=== PATIENT | male | born 1940 | race Caucasian/White ===

== ENCOUNTER 2016-04-26 11:55 | Inpatient (IN) ==
--- NOTE | 2016-04-26 12:07 | EKG Report ---
Stationary ECG Study [facility] ER Test Date: 04/26/2016 12:07:01 PM Pat Name: KERLINE GORDON Department: Room: Gender: M Jailor: Jose Mukherjee : 1940 Requested by: Tae Rm Order Number: [id number] Reading MD: PAT PRATER Intervals [place] Rate: 50 P: 61 CO: 192 QRS: 67 QRSD: 115 T: -65 QT: 472 QTc: 446 Interpretive Statements SINUS BRADYCARDIA Electronically Signed On 04-26-16 21:01:35 DIRECTOR OF PARTNER MARKETING by PAT PRATER [email or web address]
[2016-04-26 12:30] LABS: Basophils # 0.1 10*3/uL (0.0-0.2); Basophils % 0.8 % (0.0-0.8); Eosinophils # 0.5 10*3/uL (0.0-0.87); Eosinophils % 7.6 % (0.00-10.9); Hematocrit 35.4 VOL% (42.0-52.0); Hemoglobin 12.3 GM/DL (14.0-18.0); Immature Granulocytes % 0.2 %; Immature Granulocytes Absolute 0.01 #; Lymphocytes # 1.9 10*3/uL (1.4-4.0); Lymphocytes % 29.7 % (21.2-54.2); Mean Corpuscular HGB Conc 34.7 GM/DL (32-36); Mean Corpuscular Hemoglobin 31 PG (27-34); Mean Corpuscular Volume 87.8 FL (87-102); Mean Platelet Volume 10.6 FL (9.6-12.0); Monocytes # 0.4 10*3/uL (0.11-0.8); Monocytes % 5.9 % (1.7-12.7); Neutrophils # 3.5 10*3/uL (1.4-7.4); Neutrophils % 55.8 % (38.7-73.9); Platelet Count 185 T/CUMM (130-400); Red Blood Count 4.03 MC/CUMM (3.8-5.5); White Blood Count 6.2 T/CUMM (4-12)
[2016-04-26 12:41] LABS: PT Patient Result 10.8 SECS; Partial Thromboplastin Time 28.7 SECS (0-40)
--- NOTE | 2016-04-26 12:42 | CT Report ---
History: Hemiparesis Date: 04/26/2016 Study: CT head without contrast Comparison exam: CT head September 13, [address] sections were obtained through the head without IV contrast. Total DLP measures 1103.6 mGy*cm. The CT exam was performed using one or more of the following dose reduction techniques: Automated exposure control and adjustment of the mA and/or kV according to patient size. There is an equivocal ill-defined area of decreased density measuring up to 12 mm in the left norris radiata which could represent recent ischemia. There is no gross CT evidence of acute cortical stroke. There is no parenchymal hemorrhage. The ventricles are midline in position without evidence of hydrocephalus. There is some ill-defined hypodensity in the periventricular white matter without mass effect compatible with changes of small vessel disease. There is no mass effect. There is no extra-axial hematoma. There is no acute abnormality of the bony calvarium. The partially visualized paranasal sinuses and mastoid air cells are clear. Impression: Equivocal area of recent ischemia in the left norris radiata measuring 12 mm in diameter. MRI may be helpful in clarification if felt clinically necessary PROCEDURE INTERPRETED AT [facility] DEPARTMENT OF RADIOLOGY Final Report Signed by: Dr. Kajal Celaya
--- NOTE | 2016-04-26 12:44 | Emergency Department Note ---
Bryce Huerta Meredith, am scribing for, and in the presence of, Tae Vasquez MD 12: 32. Christina Huerta James D, MD, personally performed the services described in this documentation, ascribed by Tomasa Wu in my presence, and it is both accurate and complete . 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 He denies any nausea , diaphoresis, chest pain, shortness of breath, or slurred speech. Pt took 2 ASA today. He has a history of HTN, CAD, TIA, and NIDDM. Pt has a surgical history of triple bypass Onset (ago): minute(s) Consistency: intermittent, now resolved Allergies/Adverse Reactions: Allergies Allergy/AdvReac Type Severity Reaction Status Date / Time No Known Allergies Allergy Verified 11/05/14 13:40 Home Medications: Home Medications Medication Instructions Recorded Confirmed Type Aspirin [Ecotrin] 81 mg PO DAILY 04/26/16 04/26/16 History Atenolol 12.5 mg PO DAILY 04/26/16 04/26/16 History Atorvastatin [Lipitor] 20 mg PO DAILY 04/26/16 04/26/16 History Clopidogrel [Plavix] 75 mg PO DAILY 04/26/16 04/26/16 History Glimepiride 4 mg PO DAILY 04/26/16 04/26/16 History Pioglitazone HCl 30 mg PO DAILY 04/26/16 04/26/16 History Ramipril 10 mg PO DAILY 04/26/16 04/26/16 History Review of System - Review of System 12 point system: reviewed and no additional remarkable complaints except as stated - Review of System Constitutional: Present: as per HPI. Absent: diaphoresis Respiratory: Present: as per HPI. Absent: respiratory distress Cardiovascular: Present: as per HPI. Absent: chest pain Gastrointestinal: Present: as per HPI. Absent: nausea Neurological: Present: as per HPI, weakness (left-sided), numbness (left arm ), abnormal gait (difficulty walking ), other (denies any slurred speech) Medical,Surgical,& Family Hx - Medical History Cardio: History of: CAD, Hypertension Neurology: History of: TIA Endocrine: History of: Diabetes Mellitus (NIDDM) - Surgical History Cardiac Surgeries: Sugical HX of: Cardiac Surgery (CABG) - Family History Family History: Denies;: Additional Family History - Social History Smoking Status: Never smoker Exam Physical Examination: GENERAL: This is a well-nourished, well-developed white male in no apparent distress. VITAL SIGNS: Temperature: 97.0, Pulse: 53, Respirations: 18, Blood pressure: 193 /92, O2 Saturation: 99 HEENT: Head is normocephalic and atraumatic. Pupils are equally round and reactive to light. Extraocular movement are intact. Oropharynx is benign with moist mucous membranes. NECK: Neck is soft and supple without tenderness. There are no masses. There is no lymphadenopathy. LUNGS: Lungs are clear to auscultation bilaterally. Chest rises symmetrically. There is no chest wall tenderness. CV: Heart is regular rate and rhythm without murmurs, rubs, or gallops. ABDOMEN: Abdomen is soft, non-tender to palpation. There are no abnormal masses palpated. There is no organomegaly. Bowel sounds are present and active. SKIN: Skin is warm and dry. No rash. EXTREMITIES: Patient has full range of motion without tenderness. There is no pedal edema. NEUROLOGIC: Awake, alert, and oriented x4. Cranial nerves II through XII are grossly intact. There are no motorsensory deficits. PSYCHIATRIC: Normal affect. Normal mood. Vital Signs: Vital Signs Temperature 97.0 F L 04/26/16 11:56 Pulse Rate 53 L 04/26/16 11:56 Respiratory Rate 16 04/26/16 12:12 Blood Pressure 193/92 04/26/16 11:56 O2 Sat by Pulse Oximetry 99 04/26/16 11:56 Course - Consultations Consultation #1: Discussed with hospitalist. Patient will be admitted to their service. Time: 12:47 Results - Labs CBC & BMP: 04/26/16 12:05 04/26/16 12:05 Lab Results: I have reviewed the patients labs Labs: Laboratory Tests 04/26/16 12:05 WBC 6.2 RBC 4.03 Hgb 12.3 L Hct 35.4 L Plt Count 185 Laboratory Tests 04/26/16 04/26/16 12:05 12:05 INR 1.0 PT Patient/Control Mix 10.8 Circ Anticoag PTT 28.7 Sodium 143 Potassium 4.0 Chloride 107 Carbon Dioxide 23 Anion Gap 17.0 H BUN 13 Creatinine 1.10 Glucose 271 H ALT 13 L Alkaline Phosphatase 124 H Serum Alcohol < 15 L Laboratory Tests 04/26/16 13:30 Urine pH 5.0 Ur Specific [place] 1.020 Urine Glucose (UA) >=500 Urine Blood Moderate Urine Urobilinogen < 2.0 H Urine RBC 6 Urine Mucus Occasional - EKG EKG results: interpreted by ERMD - Impressions EKG sinus bradycardia with a rate of 50, nonspecific intraventricular conduction delay, possible anterolateral and inferior ischemia given that the patient has T-wave inversion in V3 through V6 and II, III, and aVF. - Diagnostic Findings Procedure: Chest x-ray: image reviewed by me, report reviewed by me (No acute cardiopulmonary process. ), CT: image reviewed by me (CT head: Equivocal area of recent ischemia in the left norris radiata measuring 12 mm in diameter. ) Disposition Clinical Impression: TIA (transient ischemic attack) Case discussed with: patient Disposition: Still a Patient Condition: Stable Time of Disposition: 12:47
[2016-04-26 13:06] LABS: Alanine Aminotransferase 13 U/L (16-61); Albumin 3.9 G/DL (3.4-5.0); Alkaline Phosphatase 124 U/L (45-117); Aspartate Amino Transferase 9 U/L (0-37); Blood Urea Nitrogen 13 MG/DL (7-18); Calcium 8.8 MG/DL (8.5-10.1); Glucose 271 MG/DL (74-106); Sodium 143 MMOL/L (136-145); Total Protein 6.9 G/DL (6.4-8.3)
[2016-04-26 13:35] LABS: Apearance,Urine CLEAR (Clear); Bilirubin,Urine Negative (Negative); Blood, Urine Moderate mg/dL (Negative); Glucose,Urine (UA) >=500 mg/dL (Negative); Ketones,Urine Negative (Negative); Mucus,Urine Occasional /LPF (Occasional); Nitrite,Urine Negative (Negative); Protein,Urine Negative; RBC,Urine 6 /HPF (0-4); Urine Color Yellow (Yellow); Urine Urobilinogen < 2.0 EU/DL (0.2-1.0)
--- NOTE | 2016-04-26 13:40 | XRay Report ---
Exam: Chest 2 views Date: April 26, 2016 at 12:51 PM Comparison: Chest PA lateral February 04, 2014 Reason: Left arm numbness Findings: The cardiac silhouette is upper normal in size, and the patient is status post sternotomy. A calcified left hilar lymph node is noted. No focal consolidation, pneumothorax or pleural effusion is identified. No acute osseous process is seen. Impression: No acute cardiopulmonary process is identified. PROCEDURE INTERPRETED AT [facility] DEPARTMENT OF RADIOLOGY Final Report Signed by: Dr. Snehal Rodney
[2016-04-26 13:47] LABS: Barbiturates Screen,Urine Negative (Negative); Benzodiazepines Screen,Urine Negative (Negative); Cannabinoid Screen,Urine Negative (Negative); Opiate Screen,Urine Negative (Negative); Phencyclidine Screen,Urine Negative (Negative)
--- NOTE | 2016-04-26 16:09 | Hospitalist History & Physical ---
Assessment and Plan - Time spent with patient Time spent with patient: Less than 30 minutes (1) TIA (transient ischemic attack) Status: Acute Assessment and plan: 75-year-old white male with history of hypertension, diabetes, hyperlipidemia, CAD with CABG approximately 15 years ago [address] Dr. Spears with TIA. Patient's symptoms are fully resolved at this time. He will be admitted for workup. We will put him on a monitor bed, 12-lead EKG, blood work, neuro checks every 6 hours, will consult Dr. Blackman from neurology and Dr. Marie his process lead. Dr. Spears to see and examine patient and further recommendations to follow. Current Visit: Yes History of Present Illness Chief complaint: Left arm and leg weakness History of present illness: Mr. Cisse is a 75-year-old white male with history of hypertension, diabetes, coronary artery disease status post CABG, hyperlipidemia presenting to the ED with a 4 hour history of left arm and leg weakness. Patient states he was in his normal state of health until about 11 AM this morning when he had an acute onset of left arm and left leg numbness and tingling. Patient states he got real weak and had difficulty walking but he did not fall. Patient states the symptoms have fully resolved and the only complaints he has right now is a headache. Patient denies blurred vision, difficulty swallowing, chest pain, shortness of breath, abdominal pain, difficulty urinating, constipation. Patient's normal process lead is Dr. bell and he was last seen in February. Patient had a TIA about 7 years ago where he was admitted and no sources were found from his workup. His symptoms resolved without difficulty. At that time it affected his speech and the right arm. CT of the head without contrast showing a an equivocal ill-defined area of decreased density measuring up to 12 mm in the left coronal radiata which could represent a recent ischemia. There is no CT evidence of acute stroke. No hemorrhage and no evidence of hydrocephalus. There is some hypodensity in the periventricular white matter without mass-effect compatible with changes of small vessel disease. Patient's chest x-ray is normal and his EKG is showing a sinus bradycardia with a nonspecific intraventricular conduction delay with an ST and T-wave abnormality with possible anterolateral and inferior ischemia. Patient's labs are relatively normal with blood sugars over 271 and negative toxicology screen. Upon exam, patient is resting comfortably in bed. He is answering all questions appropriately. His neuro exam is normal. He has equal motor strength of the upper and lower extremities. He does have a differing sensation of the left hand and forearm compared to the right. Dr. Spears has been asked to admit patient for further workup. Home Medications Medication Instructions Recorded Confirmed Type Aspirin [Ecotrin] 81 mg PO DAILY 04/26/16 04/26/16 History Atenolol 12.5 mg PO DAILY 04/26/16 04/26/16 History Atorvastatin [Lipitor] 20 mg PO DAILY 04/26/16 04/26/16 History Clopidogrel [Plavix] 75 mg PO DAILY 04/26/16 04/26/16 History Glimepiride 4 mg PO DAILY 04/26/16 04/26/16 History Pioglitazone HCl 30 mg PO DAILY 04/26/16 04/26/16 History Ramipril 10 mg PO DAILY 04/26/16 04/26/16 History Allergies Allergy/AdvReac Type Severity Reaction Status Date / Time No Known Allergies Allergy Verified 11/05/14 13:40 Medical,Surgical,& Family Hx - Medical History Cardio: History of: CAD, Hypertension Neurology: History of: TIA Endocrine: History of: Diabetes Mellitus (NIDDM) - Surgical History Cardiac Surgeries: Sugical HX of: Cardiac Surgery (CABG) - Family History Family History: Reports;: Family Diabetes, Family Heart Disease Denies;: Additional Family History - Social History Smoking Status: Never smoker Marital Status: Lives With:: Spouse Review of systems: 12 system review of systems was obtained and pertinent positives and negatives are noted in the HPI. Exam - Constitutional Vitals: Period Temp Pulse Resp BP Sys/Carlos Pulse Ox Last 24 Hr 97.0 F 53 16-18 193/92 99 General appearance: normal weight, no acute distress - Head Head exam: Present: normocephalic, atraumatic - Eye Eye exam: Present: EOMI Pupils: Present: MARTHA - ENT ENT exam: Present: normal exam - Neck Neck exam: Absent: lymphadenopathy - Respiratory Respiratory exam: Present: clear to auscultation bilaterally - Cardiovascular Cardiovascular exam: Present: bradycardia, regular rate and rhythm. Absent: carotid bruit - GI/Abdominal GI/Abdominal exam: Present: normal bowel sounds - Extremities Exam Extremities exam: Present: normal inspection, full ROM - Neurological Exam Neurological exam: Present: alert, oriented X3, CN II-XII intact, motor sensory deficit (Decreased sensation of right upper extremity in the hand and forearm compared to the left) - Psychiatric Psychiatric exam: Present: normal mood - Skin Skin exam: Present: normal color, warm Results - Labs CBC & BMP: 04/26/16 12:05 04/26/16 12:05 Lab Results: I have reviewed the past 24 hour labs - EKG EKG results: interpreted by ERMD EKG shows: bradycardia - Diagnostic Findings Procedure: Chest x-ray: image reviewed by me, report reviewed by me (Normal), CT : report reviewed by me (See HPI for results) Quality Measures - Stroke Onset of Symptoms Date: 04/26/16 Onset of Symptoms Time: 11:20 Symptom Onset Unknown: No
[2016-04-26] MEDS ORDERED: GLUCAGON 1 MG VIAL IM PRN (19:35)
[2016-04-26] MEDS ORDERED: DEXTROSE 50% 25 GM/50 ML VIAL IV PRN (19:35)
[2016-04-26] MEDS ORDERED: ONDANSETRON 4 MG/2 ML VIAL IV PRN (19:35)
[2016-04-26] MEDS: INSULIN LISPRO 100 UNIT/ML SUBCUT SCH ×2 (20:56→22:24)
[2016-04-26] MEDS: PANTOPRAZOLE 40 MG TABLET PO SCH (22:17)
[2016-04-26] MEDS: ENOXAPARIN 100 MG/ML SYRINGE SUBCUT SCH (22:17)
[2016-04-26] MEDS: SODIUM CHLORIDE 0.9% 1,000 ML IV SCH (23:02)
[2016-04-26] MEDS: ZALEPLON 5 MG CAPSULE PO SCH (23:12)
[2016-04-27] MEDS: ACETAMINOPHEN 325 MG TABLET PO PRN ×2 (02:52→12:40)
[2016-04-27 04:52] LABS: Basophils # 0.1 10*3/uL (0.0-0.2); Basophils % 0.8 % (0.0-0.8); Eosinophils # 0.5 10*3/uL (0.0-0.87); Eosinophils % 7.3 % (0.00-10.9); Hematocrit 33.3 VOL% (42.0-52.0); Hemoglobin 11.5 GM/DL (14.0-18.0); Immature Granulocytes % 0.2 %; Immature Granulocytes Absolute 0.01 #; Lymphocytes # 2.1 10*3/uL (1.4-4.0); Lymphocytes % 32.5 % (21.2-54.2); Mean Corpuscular HGB Conc 34.5 GM/DL (32-36); Mean Corpuscular Hemoglobin 31 PG (27-34); Mean Corpuscular Volume 88.8 FL (87-102); Mean Platelet Volume 11.1 FL (9.6-12.0); Monocytes # 0.5 10*3/uL (0.11-0.8); Monocytes % 7.6 % (1.7-12.7); Neutrophils # 3.3 10*3/uL (1.4-7.4); Neutrophils % 51.6 % (38.7-73.9); Platelet Count 170 T/CUMM (130-400); Red Blood Count 3.75 MC/CUMM (3.8-5.5); Red Cell Distribution Width 12.1 % (9.3-17.3); White Blood Count 6.4 T/CUMM (4-12)
[2016-04-27 05:28] LABS: Risk Ratio 3.97; Thyroid Stimulating Hormone 5.57 uIU/ml (0.358-3.74); VLDL CHOLESTEROL 65.8 MG/DL
[2016-04-27 06:07] LABS: Alanine Aminotransferase 15 U/L (16-61); Albumin 3.3 G/DL (3.4-5.0); Alkaline Phosphatase 102 U/L (45-117); Aspartate Amino Transferase 10 U/L (0-37); Blood Urea Nitrogen 12 MG/DL (7-18); Calcium 8.2 MG/DL (8.5-10.1); Glucose 162 MG/DL (74-106); Osmolality,Calculated 295.4 MOS/KG (273-304); Potassium 3.7 MMOL/L (3.5-5.1); Sodium 147 MMOL/L (136-145); Total Protein 5.8 G/DL (6.4-8.3); Troponin I Only < 0.015 NG/ML (0.00-0.045)
--- NOTE | 2016-04-27 08:27 | EKG Report ---
Stationary ECG Study [facility] Test Date: 04/27/2016 8:27:40 AM Pat Name: KERLINE GORDON Department: Room: 245 Gender: M Doper Operator: RENEE : 1940 Requested by: Fred Spears Order Number: [id number] Reading MD: PAT PRATER Intervals [place] Rate: 55 P: 64 NH: 183 QRS: 59 QRSD: 110 T: 242 QT: 470 QTc: 458 Interpretive Statements SINUS RHYTHM ST DEVIATION AND MODERATE T-WAVE ABNORMALITY DIFFUSE Electronically Signed On 04-28-16 18:32:21 CAREER SERVICES DIRECTOR by PAT PRATER [email or web address]
--- NOTE | 2016-04-27 08:38 | Ultrasound Report ---
History: Left leg weakness Date: 04/27/2016 Study: Carotid duplex ultrasound Comparison exam: No previous similar study currently available Color Doppler, wave form analysis, and grayscale analysis of the cervical carotid arteries was performed. There is moderate partially calcified plaque in either carotid bulb. Waveform analysis shows proper directional flow of the cervical carotid arteries. There is antegrade flow in either vertebral artery. The distal right ICA measures 5.8 mm diameter; the left measures 4.4 mm diameter. Peak systolic velocities are as follows: Right CCA 82 cm/s Right ICA 100 cm/s Right ECA 65 cm/s Right vertebral 55 cm/s Right IC/CC ratio 1.2 Left CCA 74 cm/s Left ICA 98 cm/s Left ECA 55 cm/s Left vertebral 62 cm/s Left IC/CC ratio 1.3 There is 0-15% diameter reduction narrowing of either internal carotid artery using indirect NASCET criteria. Ultrasound images were captured and archived. Impression: No hemodynamically significant internal carotid artery stenosis PROCEDURE INTERPRETED AT [facility] DEPARTMENT OF RADIOLOGY Final Report Signed by: Dr. Kajal Celaya
[2016-04-27] MEDS: ATENOLOL 25 MG TABLET PO SCH (08:47)
[2016-04-27] MEDS: PANTOPRAZOLE 40 MG TABLET PO SCH (08:47)
[2016-04-27] MEDS: ENOXAPARIN 100 MG/ML SYRINGE SUBCUT SCH ×2 (08:47→21:22)
[2016-04-27] MEDS: ASPIRIN EC 81 MG TABLET PO SCH (08:47)
[2016-04-27] MEDS: PIOGLITAZONE 15 MG TABLET PO SCH (08:48)
[2016-04-27] MEDS: ATORVASTATIN 20 MG TABLET PO SCH (08:48)
[2016-04-27] MEDS: GLIMEPIRIDE 4 MG TABLET PO SCH (08:48)
[2016-04-27] MEDS: RAMIPRIL 5 MG CAPSULE PO SCH (08:48)
[2016-04-27] MEDS: CLOPIDOGREL 75 MG TABLET PO SCH (08:49)
[2016-04-27] MEDS: INSULIN LISPRO 100 UNIT/ML SUBCUT SCH ×4 (08:53→21:22)
--- NOTE | 2016-04-27 10:13 | Hospitalist Progress Note ---
Assessment and Plan (1) TIA (transient ischemic attack) Status: Acute Assessment and plan: The patient's left-sided weakness has now improved. Carotid Doppler ultrasound reveals no stenosis. Echocardiogram is pending. MRI scan is pending. Neurology consultation is pending. The information systems consultant has adjusted the patient's blood pressure medication. Current Visit: Yes (2) HTN (hypertension) Status: Chronic Current Visit: Yes (3) CAD (coronary artery disease) Status: Chronic Current Visit: Yes Qualifiers: Coronary Disease-Associated Artery/Lesion type: bypass graft Hospitalist: Subjective Interval history: Mr. Cisse says his previous left-sided weakness has now resolved. The patient' s right temporal paresthesias has now resolved. The patient feels well and has no chest pain or palpitations. Exam - Constitutional Vitals: Period Temp Pulse Resp BP Sys/Carlos Pulse Ox Last 24 Hr 97.6 F-98.8 F 50-59 17-20 122-169/59-79 94-100 Exam: Constitutional System: No distress. No tremulousness. Head: Normocephalic, atraumatic. Ears, Nose and Throat System: No evidence of Otitis or Mastoiditis. No epistaxis or discharge Eyes System: Pupils equal, round, and reactive. Extraocular muscles intact. Neck: Supple, without adenopathy, No jugular venous distention. No thyromegaly , neck mass, or prior surgery apparent. Respiratory System: Chest clear to auscultation. Cardiovascular System: Heart with regular rate and rhythm. No murmur. GI System: Abdomen soft, nontender. Normoactive bowel sounds present. Musculoskeletal System: limbs with no pedal edema. Full distal pulses. Neurological System: No discernable sensory deficit. No aphasia Psychiatric System: Conversation is rational Results - Labs CBC & BMP: 04/27/16 04:20 04/27/16 04:20 Lab Results: I have reviewed the past 24 hour labs - Diagnostic Findings Procedure: Ultrasound: report reviewed by me (carotid Doppler study reveals no stenoses) Quality Measures - VTE Contraindication to Pharmacological VTE Prophylaxis: Already on Theraputic Agent , No Prophylaxis Needed - Stroke Onset of Symptoms Date: 04/26/16 Onset of Symptoms Time: 11:20 Presenting Symptoms: Left hemiparesis Symptom Onset Unknown: No
[2016-04-27] MEDS: SODIUM CHLORIDE 0.9% 1,000 ML IV SCH ×2 (11:14→23:30)
--- NOTE | 2016-04-27 16:52 | Magnetic Resonance Report ---
Referring physician: Fred Spears Exam: MRI brain without contrast Date: April 27, 2016 Comparison: CT brain without contrast April 26, 2016 Reason: Left leg weakness The patient is an inpatient who was admitted on April 26, 2016. Technique: MRI of the brain was performed without the use of contrast. Obtained images include sagittal T1, axial diffusion-weighted, axial FLAIR, axial T2, coronal T2, axial gradient and axial T1 sequences. A 1.5 Janet magnet was used. Findings: There is a 1 cm area of diffusion restriction with corresponding mild T2/FLAIR hyperintensity at the junction of the midbrain and ray at midline. This could represent an acute or subacute lacunar-type infarction. Other considerations include artifact related to the pyramidal tracks. Please correlate clinical symptoms. There are small scattered areas of T2/FLAIR hyperintensity within the cerebral white matter bilaterally. This is nonspecific but is most consistent with mild chronic microvascular ischemic change. There is also mild generalized cerebral atrophy/volume loss. No hydrocephalus or midline shift is present. There is no evidence of recent intracranial hemorrhage or abnormal mass effect. Major vascular flow voids are visualized. The orbits and sella are unremarkable. There are bilateral enid bullosa. The paranasal sinuses appear clear. The mastoid air cells are also clear. Impression: 1. There is a 1 cm area of diffusion restriction with corresponding mild T2/FLAIR hyperintensity at the junction of the midbrain and ray at midline. This could represent an acute or subacute lacunar-type infarction. Other considerations include artifact related to the pyramidal tracts. Please correlate with clinical symptoms, and a follow-up study could be performed. 2. Probable mild chronic microvascular ischemic change and mild generalized cerebral atrophy/volume loss. Findings were discussed with Dr. Spears on April 27, 2016 at 4:49 PM. This is a critical test. PROCEDURE INTERPRETED AT [facility] DEPARTMENT OF RADIOLOGY Final Report Signed by: Dr. Snehal Rodney
--- NOTE | 2016-04-27 16:57 | Neurology Consult Note ---
History of Present Illness History of present illness: Mr. Cisse is a 75-year-old white male with history of hypertension, diabetes, coronary artery disease status post CABG, hyperlipidemia presenting to the ED with a 4 hour history of left arm and leg weakness. Patient states he was in his normal state of health until about 11 AM yesterday morning when he had an acute onset of left arm and left leg numbness and tingling. Patient states he got real weak and had difficulty walking but he did not fall. Patient states the symptoms have fully resolved and the only complaints he has right now is a headache. Patient denies blurred vision, difficulty swallowing, chest pain, shortness of breath, abdominal pain, difficulty urinating, constipation. Patient had a TIA about 7 years ago where he was admitted and no sources were found from his workup. His symptoms resolved without difficulty. At that time it affected his speech and the right arm. There is no CT evidence of acute stroke. MRI of the brain is unremarkable. Home Medications Medication Instructions Recorded Confirmed Type Aspirin [Ecotrin] 81 mg PO DAILY 04/26/16 04/26/16 History Atenolol 12.5 mg PO DAILY 04/26/16 04/26/16 History Atorvastatin [Lipitor] 20 mg PO DAILY 04/26/16 04/26/16 History Clopidogrel [Plavix] 75 mg PO DAILY 04/26/16 04/26/16 History Glimepiride 4 mg PO DAILY 04/26/16 04/26/16 History Pioglitazone HCl 30 mg PO DAILY 04/26/16 04/26/16 History Ramipril 10 mg PO DAILY 04/26/16 04/26/16 History Allergies Allergy/AdvReac Type Severity Reaction Status Date / Time No Known Allergies Allergy Verified 11/05/14 13:40 12 point system: reviewed and no additional remarkable complaints except as stated Medical,Surgical,& Family Hx - Medical History Cardio: History of: CAD, Hypertension Neurology: History of: TIA Endocrine: History of: Diabetes Mellitus (NIDDM) - Surgical History Cardiac Surgeries: Sugical HX of: Cardiac Surgery (CABG) - Family History Family History: Reports;: Family Diabetes, Family Heart Disease Denies;: Additional Family History - Social History Smoking Status: Never smoker Frequency of Alcohol Use: None Type of Drug Use: None Exam - Constitutional Vitals: Period Temp Pulse Resp BP Sys/Carlos Pulse Ox Last 24 Hr 97.4 F-98.8 F 50-59 17-20 122-169/59-79 94-100 Exam: GENERAL: Patient is in no acute distress. NECK: Neck is supple. There is no JVD. No carotid bruits present. No thyroid masses. CVS: First and second heart sounds are normal. There is no S3 present. Regular rate and rhythm. RESPIRATORY: Lungs are clear to auscultation without any rales or rhonchi. ABDOMEN: Soft and non-tender. Bowel sounds are present. There is no hepatosplenomegaly. EXT: There is no palpable edema. Peripheral pulses are present. Skin: No rashes Central Nervous system: General: Alert, awake and Oriented x 3 Speech: Fluent Comprehension: Intact and normal Facial expressions: Normal Cranial Nerves: CN1/Olfactory: Normal CN II/ Optic: Normal, Visual Capps unreliable CN III, and : MARTHA & EOMI CN V: Normal & intact CN VII: face is symmetric CNVIII: Normal CN XI/X/XI/XII: Intact and Normal Motor: Bulk and Tone is normal. Strength in the right 5/5 Strength in the left 5/5 Sensory: Grossly intact for all the modalities of PP, LT and temp sense Reflexes: 1+ and symmetrical Cerebellar function: Normal finger to nose and heel to rachel testing. Toes: Equivocal Gait: Normal heel to heel and toe to toe and tandem walk. Results - Labs CBC & BMP: 04/27/16 04:20 04/27/16 04:20 Assessment and Plan (1) TIA (transient ischemic attack) Status: Acute Assessment and plan: He is adequately anticoagulated. Continue Plavix 75 daily Change aspirin to 325 mg p.o. daily Thanks for the consult Follow-up in 4 weeks Current Visit: Yes Specialty Discharge - Follow Up or Referrals Follow up with: Ranjit Blackman MD [Physician] - 1 Month
--- NOTE | 2016-04-27 20:16 | Cardiology Consult Note ---
Anuj Huerta Vanessa, RN, am scribing for, and in the presence of, Alon Barger MD 20:15. Assessment and Plan - Time spent with patient Time spent with patient: Greater than 30 minutes (due to assessment, planning, documentation, med review) (1) TIA (transient ischemic attack) Status: Acute Assessment and plan: Did not experience chest pain, SOB, other anginal equivalent with this. Symptoms have completely resolved. Cardiac workup thusfar is normal. Neurology has been consulted. Current Visit: Yes (2) HTN (hypertension) Status: Chronic Assessment and plan: Elevated at times with SBP no greater than 170 since admission. Adjust medications accordingly. Current Visit: Yes (3) CAD (coronary artery disease) Status: Chronic Assessment and plan: No recent or current s/s of ACS. He has not required SL NTG. Current Visit: Yes Qualifiers: Coronary Disease-Associated Artery/Lesion type: bypass graft (4) Hx of CABG Status: Acute Assessment and plan: Last cardiac catheterization July 2013. Known occlusion of WYATT graft to LAD, patent vein graft to diagonal with retrograde filling to LAD system, disease of proximal OM vein graft which was stented with drug eluting stent. He has done well since that time without anginal complaint. Plavix and ASA have been continued. Current Visit: Yes (5) Hyperlipidemia Status: Acute Assessment and plan: FLPs reviewed. Triglycerides elevated. Statin has been continued. Current Visit: Yes (6) Diabetes mellitus Status: Acute Assessment and plan: Amaryl and Actos continued. Defer management to hospitalist service. Current Visit: Yes (7) Peripheral neuropathy Status: Chronic Current Visit: Yes History of Present Illness - Data of Consult Patient: known to practice within the last 3 years Consult date: 04/27/16 Requesting Physician: Fred Spears Primary care physician: Yaz Colvin - Consult Narrative Reason for consult: TIA; hx CAD, CABG History of present illness: Mr. Cisse is a 75 year old white male routinely followed by Dr. Yeison Marie for cardiology. Risk factors for CAD include HTN, known CAD, hyperlipidemia, diabetes, former tobacco abuse. Other past medical history includes TIA, DDD, peripheral neuropathy, chronic back pain, BPH. Previous cardiac history significant for 3 vessel CABG January,, with WYATT graft to LAD, vein graft to diagnonal, and vein graft to circumflex artery. January 2005, underwent stenting of mid circumflex. Last cardiac catheterization was July 2013 with chronically occluded WYATT graft to LAD, patent vein graft diagonal which provides retrograde filling to LAD system, severe disease in proximal OM vein graft which was stented using 4.0 x 20 mm Medtronic drug eluting stent. At that time, RCA with 40% proximal stenosis. Preseved LV ejection fraction 55%. He was last seen by Dr. Marie in clinic on 03/11/16. He had no chest pain, palpitation, or syncope. Noted to have some dyspnea on exertion at times but also was anxious and this is felt to contribute to symptoms. He had not required any SL NTG. Patient has been in usual state of health until yesterday morning approximately 1145 when he experienced sudden onset of left arm and left leg weakness. He did not have slurred speech, N/V, vision changes, chest discomfort, dyspnea, presyncope, or other. Admits he had difficulty walking, did not fall, and these symptoms completely resolved within 10 minutes of onset. He took 2 ASA. Presented to the ER for evaluation within 30 minutes of episode occurring. BP elevated 193/92. CT head negative for acute hemorrhage, but did show recent ischemia left norris radiata 12 mm in diameter. He was admitted to hospitalist service for further workup and treatment. Neurology has been consulted to see patient. Cardiology has been consulted to see and evaluate for history of CAD and CABG. Previous TIA in 2009 which caused right sided weakness with slurred speech. He was evaluated in [place], [place]. There was never a source identified for his symptoms. Had significant HTN with this, per report, and reports BP was approximately 210/120. Symptoms resolved on their own with no residual deficits. He is seen and examined in room on [facility] floor with present at bedside. He is awake and alert. Neuro exam is normal. No residual weakness of left side, no slurred speech, facial droop or other. He is coherent and appropriate. He denies any recent or current chest pain, dyspnea, palpitation, diaphoresis, presyncope, orthopnea, PND, or LE edema. 12 lead EKG reveals sinus bradycardia, rate 55, ST-T changes inferiorly and laterally but without acute ST elevation. This is unchanged when compared to 12 lead EKG done in clinic on . Labs reviewed. H/H stable, cardiac enzymes this morning are normal, sodium 147, potassium 3.7, creatinine 1.0, trigylcerides are 329 per FLP today. TSH is 5.57. UA and UDS are negative. This patient's had no cardiac issues and is stable. Said no and judgment: PND or orthopnea. No syncope and near syncope. His neurologic symptoms are resolved and may be going home soon. He needs no further cardiac evaluation at this time. CC: Fred Spears MD - Home Medications and Allergies Home Medications: Home Medications Medication Instructions Recorded Confirmed Type Aspirin [Ecotrin] 81 mg PO DAILY 04/26/16 04/26/16 History Atenolol 12.5 mg PO DAILY 04/26/16 04/26/16 History Atorvastatin [Lipitor] 20 mg PO DAILY 04/26/16 04/26/16 History Clopidogrel [Plavix] 75 mg PO DAILY 04/26/16 04/26/16 History Glimepiride 4 mg PO DAILY 04/26/16 04/26/16 History Pioglitazone HCl 30 mg PO DAILY 04/26/16 04/26/16 History Ramipril 10 mg PO DAILY 04/26/16 04/26/16 History Allergies/Adverse Reactions: Allergies Allergy/AdvReac Type Severity Reaction Status Date / Time No Known Allergies Allergy Verified 11/05/14 13:40 Review of systems: Constitutional: Denies anorexia, chills, fatigue, fever, frequent falls, night sweats, weight gain, weight loss Eyes: Denies visual changes or loss of vision Ears: Denies decreased hearing, vertigo Nose, mouth and throat: Denies dysphagia, epistaxis, headaches, neck pain, tongue swelling, Neck: Denies thyromegaly or masses. No stiffness. Cardiovascular: as per HPI Respiratory: Denies cough, dyspnea, hemoptysis, dyspnea on exertion, wheezing, snoring Gastrointestinal: Denies abdominal pain, constipation, dyspepsia, dysphagia, hematemesis, hematochezia, melena, nausea, vomiting Genitourinary: Denies dysuria, hematuria, nocturia Musculoskeletal: Denies arthralgias, joint swelling, muscle weakness, myalgias Neurological: denies abnormal gait, abnormal speech, confusion, convulsions, frequent falls, headaches, memory loss, syncope Psychiatric: Denies anxiety, confusion, depression Endocrine: Denies cold intolerance, fatigue, heat intolerance Hematologic/Lymphatic: Denies easy bleeding, easy bruising Dermatologic: Denies Rash, itching, shingles Medical,Surgical,& Family Hx - Medical History Cardio: History of: CAD, Hypertension No history of: Cardiac Dysrhythmia, CHF, TN, Pacemaker, PVD, Valvular Heart Disease Neurology: History of: Peripheral Neuropathy, TIA No history of: Dementia, Parkinson's Disease Endocrine: History of: Diabetes Mellitus (NIDDM), Dyslipidemia No history of: Diabetes Mellitus (IDDM), Thyroid Disorder Rheumatology: No history of;: Fibromyalgia, Systemic Lupus Erythematosus Respiratory: No history of: Bronchitis, COPD, Obstructive Sleep Apnea Renal: No history of: Renal Failure Genitourinary: History of: Prostate Problems (BPH; prostate abscess (2009) w/ I& D) Gastrointestinal: History of: Diverticulitis/ Diverticulosis, Polyps (June 2015- removed per Dr. Celaya) No history of: Gastrointestinal Bleed, Hepatitis Musculoskeletal: History of: Degenerative Disk Disease Hematology: History of: Anemia, Bleeding Problems No history of: Blood Transfusion Reaction - Surgical History Cardiac Surgeries: Sugical HX of: Cardiac Catheterization, Cardiac Surgery (CABG ) Patient Denies: Carotid Endarterectomy Abdominal Surgeries: Surgical HX of: Colonoscopy - Family History Family History: Reports;: Family Diabetes, Family Heart Disease Denies;: Additional Family History - Social History Smoking Status: Former smoker Frequency of Alcohol Use: None Type of Drug Use: None Marital Status: Lives With:: Spouse Functional capacity: independent ambulation Physical Examination Vital Signs Temp Pulse Resp BP Pulse Ox 97.0 F L 53 L 18 193/92 99 04/26/16 11:56 04/26/16 11:56 04/26/16 11:56 04/26/16 11:56 04/26/16 11:56 General: Present: No Apparent Distress HEENT: Present: PERRL, Mucus Membranes Moist. Absent: Pallor Neck: Present: Supple Neck, Midline Trachea, No JVD/HJR, No Bruit Cardiac: Present: Reg Rate and Rhythm, No Murmur, Bradycardia. Absent: Audible Murmur, Tachycardia Lungs: Present: Clear Ascult./Percussion, No Wheeze, Rales, Rhonchi Neuro: Present: Grossly Intact. Absent: Weakness, Resting Tremor, Essential Tremor Abdomen: Present: Soft, Active Bowel Sounds, No Masses, No Pulsations/Bruits. Absent: Ascites, Tender, Firm, Distended Skin: Present: Clear. Absent: Rash, Suspicious Lesions Musculoskeletal: Present: No Fluid Collection, Normal Range of Motion Extremities: Present: No Clubbing, No Cyanosis, No Edema, Normal Upper Extr. Pulses (3+ bilaterally), Normal Lower Extr. Pulses (2+ bilaterally), Capillary Refill (normal) Result/EKG - Labs CBC & BMP: 04/27/16 04:20 04/27/16 04:20 Lab Results: I have reviewed the past 24 hour labs Labs: Laboratory Results - last 24 hr 04/26/16 04/26/16 04/27/16 19:58 21:18 04:20 WBC RBC Hgb Hct MCV MCH MCHC RDW Plt Count MPV Neut % (Auto) Lymph % (Auto) Crowley % (Auto) Eos % (Auto) Baso % (Auto) Neut # (Auto) Lymph # (Auto) Crowley # (Auto) Eos # (Auto) Baso # (Auto) Immature Gran % Nucleated RBC % Immature Gran # Nucleated RBCs # Sodium Potassium Chloride Carbon Dioxide Anion Gap BUN Creatinine GFR Calculation BUN/Creatinine Ratio Glucose POC Glucose 101 138 H Hemoglobin A1c Calculated Osmolality Calcium Total Bilirubin AST ALT Alkaline Phosphatase Total Creatine Kinase Troponin I Total Protein Albumin Globulin Albumin/Globulin Ratio Triglycerides 329 H Cholesterol 115 LDL Cholesterol 62.0 VLDL Cholesterol 65.8 HDL Cholesterol 29 L Heart Disease Risk Ratio 3.97 TSH 3rd Generation 5.570 H 04/27/16 04/27/16 04/27/16 04:20 04:20 04:20 WBC 6.4 RBC 3.75 L Hgb 11.5 L Hct 33.3 L MCV 88.8 MCH 31 MCHC 34.5 RDW 12.1 Plt Count 170 MPV 11.1 Neut % (Auto) 51.6 Lymph % (Auto) 32.5 Crowley % (Auto) 7.6 Eos % (Auto) 7.3 Baso % (Auto) 0.8 Neut # (Auto) 3.3 Lymph # (Auto) 2.1 Crowley # (Auto) 0.5 Eos # (Auto) 0.5 Baso # (Auto) 0.1 Immature Gran % 0.2 Nucleated RBC % 0.0 Immature Gran # 0.01 Nucleated RBCs # 0.00 Sodium 147 H Potassium 3.7 Chloride 111 H Carbon Dioxide 23 Anion Gap 16.7 H BUN 12 Creatinine 1.00 GFR Calculation 87 BUN/Creatinine Ratio 12.00 Glucose 162 H POC Glucose Hemoglobin A1c 7.3 H Calculated Osmolality 295.4 Calcium 8.2 L Total Bilirubin 0.40 AST 10 ALT 15 L Alkaline Phosphatase 102 Total Creatine Kinase 62 Troponin I < 0.015 Total Protein 5.8 L Albumin 3.3 L Globulin 2.5 Albumin/Globulin Ratio 1.3 Triglycerides Cholesterol LDL Cholesterol VLDL Cholesterol HDL Cholesterol Heart Disease Risk Ratio TSH 3rd Generation - Impressions Impressions: ECG with normal sinus rhythm and nonspecific ST-T abnormalities. - Diagnostic Findings Procedure: Chest x-ray: image reviewed by me, report reviewed by me (04/26/16 no acute cardiopulmonary process), KUB x-ray: pending, CT: image reviewed by me, report reviewed by me (04/26/16 CT head without acute hemorrhage. area of recent ischemia in left norris radiata 12 mm in diameter (MRI recommended)) - EKG EKG results: interpreted by me EKG shows: bradycardia (sinus bradycardia, rate 50's; ST-T changes inferiorly & laterally without acute ST elevation) Quality Measures - VTE Contraindication to Pharmacological VTE Prophylaxis: Already on Theraputic Agent , No Prophylaxis Needed - Stroke Onset of Symptoms Date: 04/26/16 Onset of Symptoms Time: 11:20 Presenting Symptoms: Left hemiparesis Symptom Onset Unknown: No Specialty Discharge - Follow Up or Referrals Follow up with: Ranjit Blackman MD [Physician] - 1 Month Charbel Huerta John Timothy, MD, personally performed the services described in this documentation, ascribed by Citlalli Leslie RN in my presence, and it is both accurate and complete .
[2016-04-27] MEDS: ZALEPLON 5 MG CAPSULE PO SCH (21:22)
[2016-04-28] MEDS: PANTOPRAZOLE 40 MG TABLET PO SCH (09:04)
[2016-04-28] MEDS: PIOGLITAZONE 15 MG TABLET PO SCH (09:04)
[2016-04-28] MEDS: CLOPIDOGREL 75 MG TABLET PO SCH (09:04)
[2016-04-28] MEDS: RAMIPRIL 5 MG CAPSULE PO SCH (09:04)
[2016-04-28] MEDS: ENOXAPARIN 100 MG/ML SYRINGE SUBCUT SCH (09:04)
[2016-04-28] MEDS: GLIMEPIRIDE 4 MG TABLET PO SCH (09:04)
[2016-04-28] MEDS: ATENOLOL 25 MG TABLET PO SCH (09:04)
[2016-04-28] MEDS: ASPIRIN EC 81 MG TABLET PO SCH (09:05)
[2016-04-28] MEDS: ATORVASTATIN 20 MG TABLET PO SCH (09:05)
[2016-04-28] MEDS: INSULIN LISPRO 100 UNIT/ML SUBCUT SCH (09:05)
[2016-04-28 09:47] VITALS: BP 150/70
--- NOTE | 2016-04-28 10:52 | Discharge Summary ---
Hospital Course - Hospital Course Hospital Course: The patient was admitted to the hospital with complaint of left leg greater than arm weakness and paresthesia of the skin overlying the right anabaptism. The patient's weakness improved over the next 6-12 hours. The patient returned to baseline. MRI scan revealed the possibility of lacunar infarction on the right ray. The radiologist Dr. Rodney felt that there was an ambiguous finding in this area. Dr. Blackman had been consulted and interpreted the MRI scan independently. He did not remark upon significant stroke. In my clinical judgment, I believe the patient did have a lacunar infarction in the right ray and it is improving. I agree that we should continue the patient on Plavix and increase aspirin to 325 mg. I reviewed with the patient and his family the need to comply with all medications and to follow-up with his usual primary care physician. On the date of discharge, the patient's gait has returned to baseline, he feels no leg weakness, and the paresthesia at the skin overlying the right anabaptism has resolved. - Time spent with patient Time with patient DS: Greater than 30 minutes Diagnosis - Discharge Diagnosis (1) TIA (transient ischemic attack) Status: Resolved (2) HTN (hypertension) Status: Chronic (3) CAD (coronary artery disease) Status: Chronic Specialty Discharge - Follow Up or Referrals Follow up with: Ranjit Blackman MD [Physician] - 1 Month Discharge Plan - Discharge Data Disposition: Disch To Home/Self Care Condition at Discharge: Stable Discharge Diet: advance to your usual diet Activity: resume usual activities as tolerated Hygiene: no restrictions - Discharge Medications New Acetaminophen Tab [Tylenol Tab] 650 mg PO Q4H PRN #0 tablet PRN Reason: Fever, Headache, Mild Pain Continue Glimepiride 4 mg PO DAILY Clopidogrel [Plavix] 75 mg PO DAILY Atorvastatin [Lipitor] 20 mg PO DAILY Atenolol 12.5 mg PO DAILY Pioglitazone HCl 30 mg PO DAILY Ramipril 10 mg PO DAILY Discontinued Aspirin [Ecotrin] 81 mg PO DAILY - Follow Up or Referral Follow Up: Ranjit Blackman MD [Physician] - 1 Month - Forms/Instructions Exam - Constitutional Vitals: Period Temp Pulse Resp BP Sys/Carlos Pulse Ox Last 24 Hr 97.4 F-98.5 F 52-65 18-20 135-185/70-80 94-100 Discharge Results Labs on day of discharge: Labs from last 24 hours 04/28/16 04/27/16 04/27/16 08:26 20:20 16:27 POC Glucose 179 H 161 H 155 H 04/27/16 10:33 POC Glucose 231 H DS: Provider Date of admission: 04/26/16 15:28 Primary care physician: . No PCP Attending physician on admission: Fred Spears MD Consults: 04/26/16 19:35 Consult to Case Mgmt/Social Srvs [CONS] Routine Reason for Case Mgmt/Social Srvs: Discharge Planning Consult to Occupational Therapy [CONS] Routine Reason for Occupational Therapy: Weakness Consult to Physical Therapy [CONS] Routine Reason for Physical Therapy: Weakness Consult to Physician [CONS] Routine Comment: cad Consulting Provider: Cardiology - [facility] Person Notified: ANDRIA Date Notified: 04/27/16 Time Notified: 07:36 Consult to Physician [CONS] Routine Comment: left leg weakness Consulting Provider: Ranjit Blackman Consult to Specialist Group: Neurology Person Notified: BHAVIN Date Notified: 04/27/16 Time Notified: 08:59 Discharging clinician: Fred Spears MD
== END 2016-04-28 11:46 | disposition home or self-care (01) | DRG 65 ==
LOC: N.ED 11:55 → N.EDINP 15:28 → N.2E 18:35
PROVIDERS: ADMIT Internal Medicine; ATTEND Internal Medicine

== ENCOUNTER 2017-09-13 17:41 | Inpatient (IN) ==
[2017-09-13] MEDS ORDERED: SODIUM CHLORIDE 0.9% 1,000 ML IV STA (18:05)
[2017-09-13] MEDS ORDERED: MORPHINE 4 MG/1 ML VIAL IV STA (18:05)
[2017-09-13] MEDS ORDERED: ONDANSETRON 4 MG/2 ML VIAL IV STA (18:05)
[2017-09-13 18:45] LABS: Basophils % 2.8 % (0.0-0.8); Hematocrit 43.3 VOL% (42.0-52.0); Hemoglobin 15.3 GM/DL (14.0-18.0); Lymphocytes # 0.4 10*3/uL (1.4-4.0); Lymphocytes % 26.9 % (21.2-54.2); Mean Corpuscular HGB Conc 35.3 GM/DL (32-36); Mean Corpuscular Hemoglobin 31 PG (27-34); Mean Corpuscular Volume 87.7 FL (87-102); Mean Platelet Volume 10.3 FL (9.6-12.0); Monocytes # 0.2 10*3/uL (0.11-0.8); Monocytes % 12.4 % (1.7-12.7); Neutrophils # 0.8 10*3/uL (1.4-7.4); Neutrophils % 57.9 % (38.7-73.9); Platelet Count 137 T/CUMM (130-400); Red Blood Count 4.94 MC/CUMM (3.8-5.5); Red Cell Distribution Width 12.2 % (9.3-17.3); White Blood Count 1.5 T/CUMM (4-12)
[2017-09-13 19:06] LABS: Albumin 3.3 G/DL (3.4-5.0); Bilirubin,Total 1.2 MG/DL (0.2-1.0); Calcium 7.7 MG/DL (8.5-10.1); Osmolality,Calculated 273.4 MOS/KG (273-304); Potassium 4.1 MMOL/L (3.5-5.1); Total Protein 6.9 G/DL (6.4-8.3)
[2017-09-13] MEDS ORDERED: MORPHINE 10 MG/1 ML VIAL IV STA (20:07)
[2017-09-13 20:32] LABS: Apearance,Urine CLEAR (Clear); Bilirubin,Urine Negative (Negative); Blood, Urine Moderate mg/dL (Negative); Glucose,Urine (UA) >=500 mg/dL (Negative); Ketones,Urine 5 mg/dL (Negative); Nitrite,Urine Negative (Negative); Protein,Urine Negative; RBC,Urine 1 /HPF (0-4); Urine Color Yellow (Yellow); Urine Specific Gravity 1.018 (1.001-1.035); Urine Urobilinogen < 2.0 EU/DL (0.2-1.0); WBC,Urine 1 /HPF (0-6)
[2017-09-13 20:51] LABS: Lactic Acid 2.6 MMOL/L (0.4-2.0)
[2017-09-13] MEDS ORDERED: metroNIDAZOLE INJ 500 MG in PREMIX 1 EACH IV STA (21:08)
[2017-09-13] MEDS ORDERED: LACTATED RINGERS 1,000 ML IV ONE (21:08)
[2017-09-13] MEDS ORDERED: PIPERACILLIN/TAZOBACTAM 3,375 MG in SODIUM CHLORIDE 0.9% 100 ML IV STA (21:08)
[2017-09-13 21:40] LABS: Band Neutrophils 23 % (0-10); Lymphocytes 32 % (20-55); Nucleated Red Blood Cells 1 (0-5); Platelet Estimate Normal; Segmented Neutrophils 35 % (50-85); Total Cells Counted 100
[2017-09-13] MEDS ORDERED: ACETAMINOPHEN 325 MG TABLET PO PRN (23:03)
[2017-09-13] MEDS: MORPHINE 4 MG/1 ML VIAL IV PRN (23:18)
[2017-09-13] MEDS: LACTATED RINGERS 1,000 ML IV SCH (23:18)
[2017-09-13] MEDS: metroNIDAZOLE INJ 500 MG in PREMIX 1 EACH IV SCH (23:18)
[2017-09-14] MEDS: MORPHINE 4 MG/1 ML VIAL IV PRN ×2 (03:06→07:09)
[2017-09-14] MEDS: PIPERACILLIN/TAZOBACTAM 3,375 MG in SODIUM CHLORIDE 0.9% 100 ML IV SCH ×3 (03:06→20:43)
[2017-09-14 05:41] LABS: Basophils % 1.9 % (0.0-0.8); Immature Granulocytes % 0.5 %; Immature Granulocytes Absolute 0.01 #; Lymphocytes # 0.4 10*3/uL (1.4-4.0); Mean Corpuscular HGB Conc 35.7 GM/DL (32-36); Mean Corpuscular Hemoglobin 31 PG (27-34); Mean Corpuscular Volume 87.1 FL (87-102); Mean Platelet Volume 10.6 FL (9.6-12.0); Monocytes # 0.3 10*3/uL (0.11-0.8); Monocytes % 16.2 % (1.7-12.7); Neutrophils # 1.3 10*3/uL (1.4-7.4); Neutrophils % 61.4 % (38.7-73.9); Platelet Count 128 T/CUMM (130-400); Red Blood Count 4.82 MC/CUMM (3.8-5.5); Red Cell Distribution Width 12.3 % (9.3-17.3); White Blood Count 2.1 T/CUMM (4-12)
[2017-09-14] MEDS: metroNIDAZOLE INJ 500 MG in PREMIX 1 EACH IV SCH ×3 (06:04→23:39)
[2017-09-14 06:10] LABS: Band Neutrophils 15 % (0-10); Eosinophils 2 % (0-10); Hypochromasia 1+; Lymphocytes 28 % (20-55); Platelet Estimate Normal; Segmented Neutrophils 35 % (50-85); Total Cells Counted 100
[2017-09-14 06:11] LABS: Atypical Lymphocytes Few
[2017-09-14 06:15] LABS: Calcium 7.8 MG/DL (8.5-10.1); Osmolality,Calculated 278.8 MOS/KG (273-304); Potassium 3.8 MMOL/L (3.5-5.1)
[2017-09-14 06:17] LABS: Lactic Acid 1.3 MMOL/L (0.4-2.0)
[2017-09-14] MEDS: LACTATED RINGERS 1,000 ML IV SCH ×2 (07:12→17:41)
[2017-09-14] MEDS ORDERED: MAGNESIUM SULF RIDER 4 GM in PREMIX 1 EACH IV PRN (08:57)
[2017-09-14] MEDS ORDERED: MAGNESIUM SULF RIDER 2 GM in PREMIX 1 EACH IV PRN (08:57)
[2017-09-14] MEDS ORDERED: PANTOPRAZOLE 40 MG TABLET PO SCH (09:00)
[2017-09-14] MEDS ORDERED: MAGNESIUM SULF RIDER 2 GM in PREMIX 1 EACH IV ONE (09:00)
[2017-09-14] MEDS: HYDROmorphone 2 MG/1 ML VIAL IV PRN ×6 (09:28→23:49)
[2017-09-14] MEDS: ONDANSETRON 4 MG/2 ML VIAL IV PRN ×2 (09:28→15:32)
[2017-09-14] MEDS: PROMETHAZINE 25 MG/1 ML VIAL IM PRN (11:23)
[2017-09-14] MEDS: ASPIRIN EC 325 MG TABLET PO SCH (11:46)
[2017-09-14] MEDS: ATENOLOL 25 MG TABLET PO SCH (11:47)
[2017-09-14] MEDS: CLOPIDOGREL 75 MG TABLET PO SCH (11:47)
[2017-09-14] MEDS ORDERED: LACTATED RINGERS 1,000 ML IV ONE (14:47)
[2017-09-14] MEDS: PRAVASTATIN 20 MG TABLET PO SCH (20:42)
[2017-09-15] MEDS: LACTATED RINGERS 1,000 ML IV SCH ×3 (00:54→19:06)
[2017-09-15] MEDS ORDERED: LACTATED RINGERS 1,000 ML IV ONE (02:37)
[2017-09-15] MEDS: PIPERACILLIN/TAZOBACTAM 3,375 MG in SODIUM CHLORIDE 0.9% 100 ML IV SCH (04:01)
[2017-09-15] MEDS: HYDROmorphone 2 MG/1 ML VIAL IV PRN (04:39)
[2017-09-15 05:56] LABS: Basophils % 1.4 % (0.0-0.8); Eosinophils % 0.7 % (0.00-10.9); Hematocrit 40.7 VOL% (42.0-52.0); Hemoglobin 13.5 GM/DL (14.0-18.0); Immature Granulocytes % 1.1 %; Immature Granulocytes Absolute 0.03 #; Lymphocytes # 0.6 10*3/uL (1.4-4.0); Lymphocytes % 21.4 % (21.2-54.2); Mean Corpuscular HGB Conc 33.2 GM/DL (32-36); Mean Corpuscular Hemoglobin 30 PG (27-34); Mean Corpuscular Volume 89.8 FL (87-102); Mean Platelet Volume 10.7 FL (9.6-12.0); Monocytes # 0.6 10*3/uL (0.11-0.8); Neutrophils # 1.6 10*3/uL (1.4-7.4); Neutrophils % 55.4 % (38.7-73.9); Platelet Count 141 T/CUMM (130-400); Red Blood Count 4.53 MC/CUMM (3.8-5.5); Red Cell Distribution Width 12.4 % (9.3-17.3); White Blood Count 2.9 T/CUMM (4-12)
[2017-09-15 06:10] LABS: Calcium 7.6 MG/DL (8.5-10.1); Osmolality,Calculated 292.5 MOS/KG (273-304); Potassium 3.6 MMOL/L (3.5-5.1)
[2017-09-15] MEDS: metroNIDAZOLE INJ 500 MG in PREMIX 1 EACH IV SCH (06:26)
[2017-09-15 06:31] LABS: Atypical Lymphocytes 1+; Band Neutrophils 45 % (0-10); Lymphocytes 34 % (20-55); Segmented Neutrophils 9 % (50-85); Total Cells Counted 100
[2017-09-15 06:32] LABS: Anisocytosis 1+; Platelet Estimate Adequate
[2017-09-15] MEDS ORDERED: SODIUM CHLORIDE 0.9% 1,000 ML IV ONE (08:30)
[2017-09-15] MEDS: CLOPIDOGREL 75 MG TABLET PO SCH (10:43)
[2017-09-15] MEDS: ATENOLOL 25 MG TABLET PO SCH (10:43)
[2017-09-15] MEDS: ASPIRIN EC 325 MG TABLET PO SCH (10:43)
[2017-09-15] MEDS: PANTOPRAZOLE 40 MG VIAL IV SCH (10:57)
[2017-09-15] MEDS: MEPERIDINE 25 MG/1 ML VIAL IV PRN ×3 (10:57→20:30)
[2017-09-15] MEDS: ENOXAPARIN 40 MG/0.4 ML SYRINGE SUBCUT SCH (10:59)
[2017-09-15] MEDS ORDERED: METOPROLOL TARTRATE 5 MG/5 ML VIAL IV ONE ×2 (11:14→11:16)
[2017-09-15] MEDS ORDERED: DILTIAZEM 50 MG/10 ML VIAL IV ONE (12:34)
[2017-09-15] MEDS: DILTIAZEM INJ 100 MG in SODIUM CHLORIDE 0.9% 100 ML IV SCH (12:51)
[2017-09-15] MEDS: VANCOMYCIN 50 MG/ML 60 ML/BOTTLE PO SCH ×2 (12:52→18:34)
[2017-09-15] MEDS ORDERED: LACTATED RINGERS 500 ML IV ONE (16:09)
[2017-09-15] MEDS: PROMETHAZINE 25 MG/1 ML VIAL IM PRN (20:30)
[2017-09-15] MEDS ORDERED: LORazepam 2 MG/1 ML VIAL IV ONE (20:55)
[2017-09-15] MEDS: PRAVASTATIN 20 MG TABLET PO SCH (20:58)
[2017-09-15] MEDS ORDERED: ZIPRASIDONE 20 MG/1 ML VIAL IM ONE (21:51)
[2017-09-16] MEDS: DILTIAZEM INJ 100 MG in SODIUM CHLORIDE 0.9% 100 ML IV SCH ×2 (00:35→15:12)
[2017-09-16] MEDS: LACTATED RINGERS 1,000 ML IV SCH ×5 (00:45→21:47)
[2017-09-16] MEDS: VANCOMYCIN 50 MG/ML 60 ML/BOTTLE PO SCH ×4 (01:07→18:27)
[2017-09-16] MEDS ORDERED: HALOPERIDOL 5 MG/ML AMP IM ONE (02:31)
[2017-09-16] MEDS ORDERED: hydrALAZINE 20 MG/1 ML VIAL IV ONE (02:31)
[2017-09-16] MEDS ORDERED: MORPHINE 10 MG/1 ML VIAL IV ONE (04:10)
[2017-09-16 04:25] LABS: Basophils % 0.8 % (0.0-0.8); Eosinophils # 0.1 10*3/uL (0.0-0.87); Hematocrit 37.1 VOL% (42.0-52.0); Hemoglobin 12.6 GM/DL (14.0-18.0); Immature Granulocytes % 0.8 %; Immature Granulocytes Absolute 0.03 #; Lymphocytes # 0.6 10*3/uL (1.4-4.0); Lymphocytes % 15.8 % (21.2-54.2); Mean Corpuscular Hemoglobin 31 PG (27-34); Mean Corpuscular Volume 90.3 FL (87-102); Mean Platelet Volume 10.6 FL (9.6-12.0); Monocytes # 0.5 10*3/uL (0.11-0.8); Monocytes % 13.7 % (1.7-12.7); Neutrophils # 2.4 10*3/uL (1.4-7.4); Neutrophils % 65.9 % (38.7-73.9); Platelet Count 133 T/CUMM (130-400); Red Blood Count 4.11 MC/CUMM (3.8-5.5); Red Cell Distribution Width 12.2 % (9.3-17.3); White Blood Count 3.7 T/CUMM (4-12)
[2017-09-16 04:40] LABS: Albumin 2.4 G/DL (3.4-5.0); Bilirubin,Total 1.4 MG/DL (0.2-1.0); Osmolality,Calculated 298.8 MOS/KG (273-304); Potassium 3.1 MMOL/L (3.5-5.1); Total Protein 5.7 G/DL (6.4-8.3)
[2017-09-16 05:42] LABS: Band Neutrophils 9 % (0-10); Eosinophils 2 % (0-10); Lymphocytes 12 % (20-55); Platelet Estimate Normal; Segmented Neutrophils 64 % (50-85); Total Cells Counted 100
[2017-09-16] MEDS: PANTOPRAZOLE 40 MG VIAL IV SCH (10:48)
[2017-09-16] MEDS: ENOXAPARIN 40 MG/0.4 ML SYRINGE SUBCUT SCH (14:31)
[2017-09-16] MEDS: AMPICILLIN INJ 1,000 MG in SODIUM CHLORIDE 0.9% 100 ML IV SCH (17:45)
[2017-09-16] MEDS: POTASSIUM CHLORIDE RIDER 10 MEQ in PREMIX 1 EACH IV SCH ×4 (18:27→21:45)
[2017-09-16] MEDS: PRAVASTATIN 20 MG TABLET PO SCH (20:16)
[2017-09-16] MEDS: HYDROmorphone 2 MG/1 ML VIAL IV PRN (21:48)
[2017-09-16] MEDS ORDERED: hydrALAZINE 20 MG/1 ML VIAL IV PRN (21:51)
[2017-09-17] MEDS: AMPICILLIN INJ 1,000 MG in SODIUM CHLORIDE 0.9% 100 ML IV SCH ×3 (00:06→17:00)
[2017-09-17] MEDS: VANCOMYCIN 50 MG/ML 60 ML/BOTTLE PO SCH ×4 (00:06→18:28)
[2017-09-17] MEDS: DILTIAZEM INJ 100 MG in SODIUM CHLORIDE 0.9% 100 ML IV SCH ×2 (02:29→15:11)
[2017-09-17] MEDS ORDERED: LORazepam 2 MG/1 ML VIAL ONE (02:39)
[2017-09-17] MEDS ORDERED: LORazepam 2 MG/1 ML VIAL IV ONE (02:42)
[2017-09-17] MEDS ORDERED: OLANZapine 10 MG VIAL IM ONE (02:44)
[2017-09-17] MEDS ORDERED: SODIUM CHLORIDE 0.9% 500 ML IV ONE (02:50)
[2017-09-17] MEDS ORDERED: METOPROLOL TARTRATE 5 MG/5 ML VIAL IV ONE ×2 (03:02→03:17)
[2017-09-17] MEDS ORDERED: HALOPERIDOL 5 MG/ML AMP ONE (03:05)
[2017-09-17] MEDS ORDERED: HALOPERIDOL 5 MG/ML AMP IM ONE (03:11)
[2017-09-17 03:39] LABS: Basophils # 0.1 10*3/uL (0.0-0.2); Basophils % 0.8 % (0.0-0.8); Eosinophils # 0.1 10*3/uL (0.0-0.87); Eosinophils % 1.2 % (0.00-10.9); Hematocrit 37.8 VOL% (42.0-52.0); Hemoglobin 13.1 GM/DL (14.0-18.0); Immature Granulocytes % 1.2 %; Immature Granulocytes Absolute 0.07 #; Lymphocytes # 0.8 10*3/uL (1.4-4.0); Mean Corpuscular HGB Conc 34.7 GM/DL (32-36); Mean Corpuscular Hemoglobin 31 PG (27-34); Mean Corpuscular Volume 88.3 FL (87-102); Mean Platelet Volume 10.8 FL (9.6-12.0); Monocytes # 0.8 10*3/uL (0.11-0.8); Monocytes % 13.1 % (1.7-12.7); NRBC # 0.03 10*3/uL; Neutrophils # 4.3 10*3/uL (1.4-7.4); Neutrophils % 70.7 % (38.7-73.9); Platelet Count 176 T/CUMM (130-400); Red Blood Count 4.28 MC/CUMM (3.8-5.5); Red Cell Distribution Width 12.5 % (9.3-17.3)
[2017-09-17] MEDS: LACTATED RINGERS 1,000 ML IV SCH ×3 (06:42→23:28)
[2017-09-17] MEDS: PANTOPRAZOLE 40 MG VIAL IV SCH (08:43)
[2017-09-17] MEDS: ATENOLOL 25 MG TABLET PO SCH (08:44)
[2017-09-17] MEDS: ENOXAPARIN 40 MG/0.4 ML SYRINGE SUBCUT SCH (11:35)
[2017-09-17] MEDS ORDERED: METOPROLOL TARTRATE 5 MG/5 ML VIAL IV PRN (15:08)
[2017-09-17] MEDS: HYDROmorphone 2 MG/1 ML VIAL IV PRN ×2 (16:40→23:21)
[2017-09-17] MEDS: PRAVASTATIN 20 MG TABLET PO SCH (20:24)
[2017-09-18] MEDS: AMPICILLIN INJ 1,000 MG in SODIUM CHLORIDE 0.9% 100 ML IV SCH ×3 (01:37→17:46)
[2017-09-18] MEDS: VANCOMYCIN 50 MG/ML 60 ML/BOTTLE PO SCH ×4 (01:38→18:00)
[2017-09-18 05:24] LABS: Basophils % 0.5 % (0.0-0.8); Eosinophils # 0.1 10*3/uL (0.0-0.87); Eosinophils % 1.5 % (0.00-10.9); Hematocrit 35.3 VOL% (42.0-52.0); Hemoglobin 12.1 GM/DL (14.0-18.0); Immature Granulocytes % 0.8 %; Immature Granulocytes Absolute 0.05 #; Lymphocytes % 16.1 % (21.2-54.2); Mean Corpuscular HGB Conc 34.3 GM/DL (32-36); Mean Corpuscular Hemoglobin 31 PG (27-34); Mean Corpuscular Volume 89.6 FL (87-102); Mean Platelet Volume 10.1 FL (9.6-12.0); Monocytes # 0.6 10*3/uL (0.11-0.8); Monocytes % 10.1 % (1.7-12.7); Neutrophils # 4.3 10*3/uL (1.4-7.4); Platelet Count 182 T/CUMM (130-400); Red Blood Count 3.94 MC/CUMM (3.8-5.5); Red Cell Distribution Width 12.1 % (9.3-17.3)
[2017-09-18 05:52] LABS: Albumin 2.2 G/DL (3.4-5.0); Calcium 8.1 MG/DL (8.5-10.1); Total Protein 5.3 G/DL (6.4-8.3)
[2017-09-18] MEDS: HYDROmorphone 2 MG/1 ML VIAL IV PRN ×6 (06:00→22:41)
[2017-09-18] MEDS: LACTATED RINGERS 1,000 ML IV SCH ×3 (08:46→18:00)
[2017-09-18] MEDS: ATENOLOL 25 MG TABLET PO SCH (08:50)
[2017-09-18] MEDS: PANTOPRAZOLE 40 MG VIAL IV SCH (08:56)
[2017-09-18] MEDS: ENOXAPARIN 40 MG/0.4 ML SYRINGE SUBCUT SCH (09:59)
[2017-09-18] MEDS: POTASSIUM CHLORIDE RIDER 10 MEQ in PREMIX 1 EACH IV PRN ×5 (11:15→15:15)
[2017-09-18] MEDS ORDERED: DEXTROSE 50% 25 GM/50 ML VIAL IV PRN (11:46)
[2017-09-18] MEDS ORDERED: GLUCAGON 1 MG VIAL IM PRN (11:46)
[2017-09-18] MEDS: DILTIAZEM INJ 100 MG in SODIUM CHLORIDE 0.9% 100 ML IV SCH (13:46)
[2017-09-18] MEDS: PRAVASTATIN 20 MG TABLET PO SCH (20:51)
[2017-09-19] MEDS: LACTATED RINGERS 1,000 ML IV SCH ×4 (01:04→21:21)
[2017-09-19] MEDS: AMPICILLIN INJ 1,000 MG in SODIUM CHLORIDE 0.9% 100 ML IV SCH ×3 (01:33→16:34)
[2017-09-19] MEDS: MEPERIDINE 25 MG/1 ML VIAL IV PRN ×3 (01:46→16:34)
[2017-09-19] MEDS: HYDROmorphone 2 MG/1 ML VIAL IV PRN ×3 (03:18→23:30)
[2017-09-19 03:40] LABS: Basophils # 0.1 10*3/uL (0.0-0.2); Basophils % 0.9 % (0.0-0.8); Eosinophils # 0.1 10*3/uL (0.0-0.87); Eosinophils % 1.7 % (0.00-10.9); Hematocrit 33.2 VOL% (42.0-52.0); Hemoglobin 11.3 GM/DL (14.0-18.0); Immature Granulocytes % 0.7 %; Immature Granulocytes Absolute 0.04 #; Lymphocytes # 1.2 10*3/uL (1.4-4.0); Lymphocytes % 20.2 % (21.2-54.2); Mean Corpuscular Hemoglobin 30 PG (27-34); Mean Corpuscular Volume 89.2 FL (87-102); Mean Platelet Volume 10.1 FL (9.6-12.0); Monocytes # 0.7 10*3/uL (0.11-0.8); Monocytes % 11.1 % (1.7-12.7); Neutrophils # 3.8 10*3/uL (1.4-7.4); Neutrophils % 65.4 % (38.7-73.9); Platelet Count 204 T/CUMM (130-400); Red Blood Count 3.72 MC/CUMM (3.8-5.5); Red Cell Distribution Width 11.9 % (9.3-17.3); White Blood Count 5.9 T/CUMM (4-12)
[2017-09-19 04:16] LABS: Albumin 2.2 G/DL (3.4-5.0); Calcium 7.9 MG/DL (8.5-10.1); Osmolality,Calculated 282.1 MOS/KG (273-304); Potassium 3.2 MMOL/L (3.5-5.1); Total Protein 5.1 G/DL (6.4-8.3)
[2017-09-19] MEDS: POTASSIUM CHLORIDE RIDER 10 MEQ in PREMIX 1 EACH IV PRN ×4 (06:18→11:18)
[2017-09-19] MEDS: VANCOMYCIN 50 MG/ML 60 ML/BOTTLE PO SCH ×4 (06:19→18:38)
[2017-09-19] MEDS: ATENOLOL 25 MG TABLET PO SCH (08:39)
[2017-09-19] MEDS: PANTOPRAZOLE 40 MG VIAL IV SCH (08:40)
[2017-09-19] MEDS: ENOXAPARIN 40 MG/0.4 ML SYRINGE SUBCUT SCH (11:15)
[2017-09-19] MEDS: DILTIAZEM INJ 100 MG in SODIUM CHLORIDE 0.9% 100 ML IV SCH (13:56)
[2017-09-19] MEDS: PRAVASTATIN 20 MG TABLET PO SCH (21:16)
[2017-09-19] MEDS: ONDANSETRON 4 MG/2 ML VIAL IV PRN (23:31)
[2017-09-20] MEDS: AMPICILLIN INJ 1,000 MG in SODIUM CHLORIDE 0.9% 100 ML IV SCH ×3 (01:07→16:55)
[2017-09-20] MEDS: VANCOMYCIN 50 MG/ML 60 ML/BOTTLE PO SCH ×4 (01:16→18:35)
[2017-09-20] MEDS: ONDANSETRON 4 MG/2 ML VIAL IV PRN ×2 (05:13→20:15)
[2017-09-20] MEDS: HYDROmorphone 2 MG/1 ML VIAL IV PRN ×4 (05:13→20:16)
[2017-09-20] MEDS: LACTATED RINGERS 1,000 ML IV SCH ×3 (05:18→15:43)
[2017-09-20 06:11] LABS: Basophils % 0.8 % (0.0-0.8); Eosinophils # 0.1 10*3/uL (0.0-0.87); Eosinophils % 1.9 % (0.00-10.9); Hematocrit 32.1 VOL% (42.0-52.0); Hemoglobin 11.4 GM/DL (14.0-18.0); Immature Granulocytes Absolute 0.05 #; Lymphocytes # 1.3 10*3/uL (1.4-4.0); Mean Corpuscular HGB Conc 35.5 GM/DL (32-36); Mean Corpuscular Hemoglobin 30 PG (27-34); Mean Corpuscular Volume 85.6 FL (87-102); Mean Platelet Volume 10.2 FL (9.6-12.0); Monocytes # 0.6 10*3/uL (0.11-0.8); Monocytes % 11.1 % (1.7-12.7); Neutrophils # 3.1 10*3/uL (1.4-7.4); Neutrophils % 60.2 % (38.7-73.9); Platelet Count 239 T/CUMM (130-400); Red Blood Count 3.75 MC/CUMM (3.8-5.5); Red Cell Distribution Width 11.8 % (9.3-17.3); White Blood Count 5.2 T/CUMM (4-12)
[2017-09-20 06:29] LABS: Albumin 2.4 G/DL (3.4-5.0); Bilirubin,Total 0.9 MG/DL (0.2-1.0); Calcium 7.9 MG/DL (8.5-10.1); Osmolality,Calculated 280.3 MOS/KG (273-304); Potassium 3.2 MMOL/L (3.5-5.1); Total Protein 5.3 G/DL (6.4-8.3)
[2017-09-20] MEDS: ATENOLOL 25 MG TABLET PO SCH (08:12)
[2017-09-20] MEDS: MEPERIDINE 25 MG/1 ML VIAL IV PRN (08:13)
[2017-09-20] MEDS: PANTOPRAZOLE 40 MG VIAL IV SCH (08:13)
[2017-09-20] MEDS: POTASSIUM CHLORIDE RIDER 10 MEQ in PREMIX 1 EACH IV PRN ×4 (08:14→11:38)
[2017-09-20] MEDS: ENOXAPARIN 40 MG/0.4 ML SYRINGE SUBCUT SCH (11:09)
[2017-09-20] MEDS: DILTIAZEM INJ 100 MG in SODIUM CHLORIDE 0.9% 100 ML IV SCH (14:20)
[2017-09-20] MEDS: PRAVASTATIN 20 MG TABLET PO SCH (20:15)
[2017-09-21] MEDS: AMPICILLIN INJ 1,000 MG in SODIUM CHLORIDE 0.9% 100 ML IV SCH ×3 (00:36→16:37)
[2017-09-21] MEDS: HYDROmorphone 2 MG/1 ML VIAL IV PRN ×6 (00:38→23:36)
[2017-09-21] MEDS: VANCOMYCIN 50 MG/ML 60 ML/BOTTLE PO SCH ×4 (00:45→19:19)
[2017-09-21] MEDS: LACTATED RINGERS 1,000 ML IV SCH ×2 (00:49→09:43)
[2017-09-21] MEDS: ONDANSETRON 4 MG/2 ML VIAL IV PRN (06:46)
[2017-09-21] MEDS: ATENOLOL 25 MG TABLET PO SCH (08:21)
[2017-09-21] MEDS: PANTOPRAZOLE 40 MG VIAL IV SCH (08:22)
[2017-09-21] MEDS: DEXT 5% NACL 0.45% KCL 20 MEQ 20 MEQ/1,000 ML BAG IV SCH ×3 (09:42→21:11)
[2017-09-21] MEDS: ENOXAPARIN 40 MG/0.4 ML SYRINGE SUBCUT SCH (11:31)
[2017-09-21] MEDS: PRAVASTATIN 20 MG TABLET PO SCH (20:35)
[2017-09-22] MEDS: VANCOMYCIN 50 MG/ML 60 ML/BOTTLE PO SCH ×4 (01:27→18:31)
[2017-09-22] MEDS: AMPICILLIN INJ 1,000 MG in SODIUM CHLORIDE 0.9% 100 ML IV SCH ×3 (01:28→16:52)
[2017-09-22] MEDS: DEXT 5% NACL 0.45% KCL 20 MEQ 20 MEQ/1,000 ML BAG IV SCH ×5 (01:30→23:21)
[2017-09-22] MEDS: HYDROmorphone 2 MG/1 ML VIAL IV PRN (04:36)
[2017-09-22 06:01] LABS: Basophils % 0.4 % (0.0-0.8); Eosinophils % 0.8 % (0.00-10.9); Hematocrit 31.2 VOL% (42.0-52.0); Hemoglobin 10.6 GM/DL (14.0-18.0); Immature Granulocytes % 0.6 %; Immature Granulocytes Absolute 0.03 #; Lymphocytes # 1.1 10*3/uL (1.4-4.0); Mean Corpuscular Hemoglobin 31 PG (27-34); Mean Corpuscular Volume 89.9 FL (87-102); Mean Platelet Volume 10.5 FL (9.6-12.0); Monocytes # 0.4 10*3/uL (0.11-0.8); Monocytes % 8.5 % (1.7-12.7); Neutrophils # 3.2 10*3/uL (1.4-7.4); Neutrophils % 66.7 % (38.7-73.9); Platelet Count 230 T/CUMM (130-400); Red Blood Count 3.47 MC/CUMM (3.8-5.5); Red Cell Distribution Width 11.9 % (9.3-17.3); White Blood Count 4.7 T/CUMM (4-12)
[2017-09-22 06:34] LABS: Potassium 3.9 MMOL/L (3.5-5.1)
[2017-09-22] MEDS: PANTOPRAZOLE 40 MG VIAL IV SCH (09:06)
[2017-09-22] MEDS: ATENOLOL 25 MG TABLET PO SCH (09:18)
[2017-09-22] MEDS: ENOXAPARIN 40 MG/0.4 ML SYRINGE SUBCUT SCH (12:43)
[2017-09-22] MEDS: oxyCODONE/ACETAMINOPHEN 5-325 MG TABLET PO PRN ×2 (14:55→21:59)
[2017-09-22] MEDS: PRAVASTATIN 20 MG TABLET PO SCH (21:59)
[2017-09-23] MEDS: VANCOMYCIN 50 MG/ML 60 ML/BOTTLE PO SCH ×3 (00:24→12:56)
[2017-09-23] MEDS: AMPICILLIN INJ 1,000 MG in SODIUM CHLORIDE 0.9% 100 ML IV SCH ×2 (00:25→09:37)
[2017-09-23] MEDS: DEXT 5% NACL 0.45% KCL 20 MEQ 20 MEQ/1,000 ML BAG IV SCH ×2 (01:30→09:42)
[2017-09-23] MEDS: oxyCODONE/ACETAMINOPHEN 5-325 MG TABLET PO PRN ×2 (05:16→11:06)
[2017-09-23] MEDS ORDERED: KETOROLAC 15 MG/1 ML VIAL IV SCH (08:00)
[2017-09-23] MEDS: PANTOPRAZOLE 40 MG VIAL IV SCH (09:37)
[2017-09-23] MEDS: ENOXAPARIN 40 MG/0.4 ML SYRINGE SUBCUT SCH (11:07)
[2017-09-23 12:16] VITALS: BP 153/79
== END 2017-09-23 13:20 | disposition home or self-care (01) | DRG 372 ==
LOC: EDBD → EDUNIT# → N.ED 17:41 → SUATTDRO 21:13 → N.EDINP 21:13 → N.CC 22:07 → N.3E 09-17 21:01
PROVIDERS: ADMIT Surgery; ATTEND Internal Medicine